=== PATIENT | female | born 1950 ===

== ENCOUNTER 2022-06-03 12:15 | Inpatient (IN) | payer OTHER ==
[~2022-06-03] VITALS: Ht 161.3 cm; Wt 89.4 kg
[2022-06-03] MEDS ORDERED: SYNTHROID150 MCG PO (14:59)
[2022-06-03] MEDS ORDERED: VALSARTAN-HCTZ1 EAC3 PO (14:59)
[2022-06-03] MEDS ORDERED: CHILDREN'S ASPI81 MG PO (14:59)
[2022-06-03] MEDS ORDERED: CARVEDILOL25 M1 PO (14:59)
[2022-06-03] MEDS ORDERED: TERBINAFINE HC250 MG PO (15:00)
[2022-06-03] MEDS ORDERED: SIMVASTATIN40 MG PO (15:00)
[2022-06-03] MEDS ORDERED: SYNJARDY 12.5-1 EACH PO (15:00)
[2022-06-03] MEDS ORDERED: SPIRONOLACTONE1 EACH PO (15:01)
[2022-06-05] MEDS ORDERED: VITAMIN D3250 MCG (12:58)
[2022-06-05] MEDS ORDERED: SPIRONOLACTONE25 MG (12:58)
[2022-06-05] MEDS ORDERED: PRESERVISION A1 EAC1 (12:58)
[2022-06-05] MEDS ORDERED: ELIQUIS5 MG (12:58)
[2022-06-05] MEDS ORDERED: SYNJARDY XR 121 EACH (12:58)
[2022-06-06] MEDS ORDERED: TRAMADOL HCL50 MG PO (10:50)
== END 2022-06-06 13:53 | disposition home or self-care (01) | DRG 349 ==
LOC: SURG 06-05 07:00 → SURH 06-05 08:22 → O/R 06-05 08:22 → SURG 06-05 12:15 → SURH 06-05 16:40
PROVIDERS: ADMIT Surgery; ATTEND Surgery
PROC: 0DBP7ZZ Excision of Rectum, Via Natural or Artificial Opening (ICD-10-PCS; principal; 2022-06-05 07:00)
DX: C7A.026 Malignant carcinoid tumor of the rectum (principal); Z20.822 Contact with and (suspected) exposure to COVID-19
CPT/HCPCS: 0184T; 45130